=== PATIENT | female | born 1985 | race Caucasian/White ===

== ENCOUNTER 2016-10-20 20:45 | Emergency (ER) | payer OTHER ==
--- NOTE | 2016-10-20 21:15 | PDOC ---
Rapid Medical Evaluation Chief Complaint: Labor Assessment Time Seen by Provider: 10/20/16 21:14 Medical Evaluation: Allergies Allergy/AdvReac Type Severity Reaction Status Date / Time No Known Allergies Allergy Verified 10/20/16 21:07 Vital Signs Temp Pulse Resp BP Pulse Ox 98.0 F 78 20 111/57 100 10/20/16 21:08 10/20/16 21:08 10/20/16 21:08 10/20/16 21:08 10/20/16 21:08 10/20/16 21:15 I have performed a brief in-person evaluation of this patient. The patient presents with a chief complaint of: abd pain, no movement x 3 days . presently 25 weeks Pertinent physical exam findings: none, vss I have ordered the following: go to maternity for monitoring
[2016-10-20 21:29] VITALS: BMI 27.4
[2016-10-20 23:17] VITALS: TEMP 98.1
[2016-10-21 01:35] VITALS: BP 104/61; PULSE 71
== END 2016-10-20 23:38 | disposition home or self-care (01) ==
LOC: JER 20:45
DX: Z03.79 Encounter for other suspected maternal and fetal conditions ruled out (principal)
CPT/HCPCS: 99281-25

== ENCOUNTER 2017-03-04 12:00 | Inpatient (IN) | payer OTHER ==
[~2017-03-04 12:00] MED LIST: CITRIC ACID/SODIUM CITRATE 30 ML UNIT-DOSE CUP PO ONE; ELECTROLYTE-148 SOLN 500 ML IV ONE
[2017-03-04 13:12] LABS: BASOPHIL 0.6 % (0-2.0); EOSINOPHIL 0.4 % (0-4.5); MCH 23.3 pg (25.7-33.7); MCHC 31.8 g/dl (32.0-36.0); MEAN CELL VOLUME 73.4 fl (80-96); MEAN PLT VOLUME 8.2 fl (7.5-11.1); NEUTROPHILS 74.3 % (42.8-82.8); PLATELET COUNT 229 K/MM3 (134-434); RDW 19.9 % (11.6-15.6); WHITE BLOOD COUNT 7.5 K/mm3 (4.0-10.0)
[2017-03-04 13:26] LABS: INR 0.93 (0.82-1.09); PROTHROMBIN TIME (PATIENT) 10.2 SEC (9.98-11.88)
[2017-03-04 13:28] LABS: ACTIVATED PTT 27.3 SECONDS (26.9-34.4)
[2017-03-04 13:35] LABS: ANION GAP 9 (8-16); CALCIUM 8.4 mg/dL (8.5-10.1); CO2 22 mmol/L (21-32); CREATININE 0.5 mg/dL (0.55-1.02); GLUCOSE,RANDOM 69 mg/dL (74-106)
[2017-03-04] MEDS: ELECTROLYTE-148 SOLN 1,000 ML IV SCH (14:00)
[2017-03-04 14:09] VITALS: BMI 28.9
--- NOTE | 2017-03-04 15:57 | HP ---
Past Medical History - Primary Care Physician PCP:: Adilson Herrera - Admission Chief Complaint: 40.5 weeks, previous c/s. LGA. for repeat c/s. voluntary BTL History of Present Illness: 32 yo f g 3 p1011 edc 02/27/17 ,post date, previous c/s sono EFW 9.5 LB admitted for repeat c/s rba discussed wants BTKL , risks of ectopic, failure risks discussed History Source: Patient Limitations to Obtaining History: No Limitations - Past Medical History ...: 3 ...Para: 1 ...Term: 1 ...: 0 ...Spon : 0 ...Induced : 1 ...Multiple Gestation: 0 ...LMP: 05/23/16 ... Weeks Gestation by Dates: 40.5 ...EDC by Dates: 02/27/17 ...EDC by Sono: 03/01/17 - Past Surgical History Past Surgical History: Yes: Hx Myomectomy: No Hx Transabdominal Cerclage: No - Smoking History Smoking history: Never smoked - Alcohol/Substance Use Hx Alcohol Use: No - Social History History of Recent Travel: No Home Medications - Allergies Allergies/Adverse Reactions: Allergies Allergy/AdvReac Type Severity Reaction Status Date / Time No Known Allergies Allergy Verified 03/04/17 15:50 - Home Medications Home Medications: Ambulatory Orders Pnv95/Ferrous Fumarate/FA [ Formula] 1 each PO DAILY 03/01/17 Valtrex 500 mg PO DAILY 03/04/17 Review of Systems - Review of Systems Constitutional: reports: No Symptoms Eyes: reports: No Symptoms HENT: reports: No Symptoms Neck: reports: No Symptoms Cardiovascular: reports: No Symptoms Respiratory: reports: No Symptoms Gastrointestinal: reports: No Symptoms Genitourinary: reports: No Symptoms Musculoskeletal: reports: No Symptoms Integumentary: reports: No Symptoms Neurological: reports: No Symptoms Endocrine: reports: No Symptoms Hematology/Lymphatic: reports: No Symptoms Psychiatric: reports: No Symptoms Physical Exam - Maternity Vital Signs: Vital Signs Temperature 98.0 F 03/04/17 15:36 Pulse Rate 74 03/04/17 15:36 Respiratory Rate 18 03/04/17 15:36 Blood Pressure 128/80 03/04/17 15:36 O2 Sat by Pulse Oximetry (%) Constitutional: Yes: Well Nourished, No Distress, Calm Eyes: Yes: WNL, Conjunctiva Clear, EOM Intact HENT: Yes: WNL, Atraumatic, Normocephalic Neck: Yes: WNL, Supple, Trachea Midline Cardiovascular: Yes: WNL, Regular Rate and Rhythm Breast(s): Yes: WNL - Abdominal Exam/OB Fundal Height: 40 Number of Fetuses: Single Presentation: Vertex Contractions: Yes Regularity: Irregular Intensity: Unaware Heart Rate Location: [facility] Category: I Accelerations: Uniform Decelerations: None - Vaginal Exam/OB Vaginal Bleediing: No Dilatation (cm): closed Effacement (%): 0 Amniotic Membrane Status: Intact Presentation: Vertex/Position Station: -3 - Physical Exam Musculoskeletal: Yes: WNL Extremities: Yes: WNL Edema: Yes Edema: LLE: Trace, RLE: Trace Deep Tendon Reflex Grade: Normal +2 - Labs Lab Results: CBC, BMP 03/04/17 12:35 03/04/17 12:35 Hemorrhage Risk Assessment - Risk Factors Medium Risk Factors: Yes: None High Risk Factors: Yes: Active bleeding on admission Risk Score: 1 Risk Level: Medium Risk Problem List - Problems (1) Postmaturity , 40-42 weeks gestation Code(s): O48.0 - POST-TERM (2) Previous section Code(s): Z98.891 - HISTORY OF UTERINE SCAR FROM PREVIOUS SURGERY (3) Sterilization Code(s): Z30.2 - ENCOUNTER FOR STERILIZATION (4) Large for gestational age fetus Code(s): LOP8888 - Assessment/Plan repeat c/s ,btl, rba discussed
[2017-03-04] MEDS ORDERED: BENZOCAINE 20% 57 GM BOTTLE TP PRN (16:56)
[2017-03-04] MEDS ORDERED: METHYLERGONOVINE MALEATE 0.2 MG/1 ML AMP IM PRN (16:56)
[2017-03-04] MEDS ORDERED: BENZOCAINE 28 GM HEMORRHOIDAL OINTMENT PR PRN (16:56)
[2017-03-04] MEDS ORDERED: oxyCODONE HCL 5 MG TABLET PO PRN (16:56)
[2017-03-04] MEDS ORDERED: diphenhydrAMINE HCL 25 MG CAPSULE (FP) PO PRN (16:56)
[2017-03-04] MEDS ORDERED: IBUPROFEN 600 MG TABLET (FP) PO PRN (16:56)
[2017-03-04] MEDS ORDERED: IBUPROFEN 800 MG/8 ML IJ IVPB PRN (16:56)
[2017-03-04] MEDS ORDERED: WITCH HAZEL 50% (TUCKS) 40 PAD/JAR PAD TP PRN (16:56)
[2017-03-04] MEDS ORDERED: OXYTOCIN 20 UNITS in 0.9% NS 1,000 ML IV SCH (17:00)
[2017-03-04] MEDS: DEXTROSE 5%-LACTATED RINGERS 1,000 ML IV SCH (20:29)
[2017-03-05] MEDS: CEFAZOLIN (PRE-DOCKED) 50 ML IVPB SCH ×2 (00:46→08:30)
[2017-03-05] MEDS: DEXTROSE 5%-LACTATED RINGERS 1,000 ML IV SCH ×2 (03:13→17:02)
--- NOTE | 2017-03-05 07:51 | PN ---
Progress Note (short form) - Note Progress Note: pod 1 doing well, no excess vaginal bleeding CBC, BMP 03/04/17 12:35 Last Vital Signs Temp Pulse Resp BP Pulse Ox 99.5 F 84 18 114/72 99 03/05/17 05:52 03/05/17 05:52 03/05/17 05:53 03/05/17 05:52 03/04/17 18:05 abdomen soft, no distension, no cva incision dry, cleanno calf tenderness plan ambulate, advance diet, cbc Problem List - Problems (1) Postmaturity , 40-42 weeks gestation Code(s): O48.0 - POST-TERM (2) Previous section Code(s): Z98.891 - HISTORY OF UTERINE SCAR FROM PREVIOUS SURGERY (3) Sterilization Code(s): Z30.2 - ENCOUNTER FOR STERILIZATION (4) Large for gestational age fetus Code(s): FOX9334 -
[2017-03-05 08:03] LABS: BASOPHIL 0.4 % (0-2.0); EOSINOPHIL 0.2 % (0-4.5); MCH 23.7 pg (25.7-33.7); MCHC 32.4 g/dl (32.0-36.0); NEUTROPHILS 76.7 % (42.8-82.8); PLATELET COUNT 198 K/MM3 (134-434); RDW 19.9 % (11.6-15.6); WHITE BLOOD COUNT 9.8 K/mm3 (4.0-10.0)
[2017-03-05] MEDS: IBUPROFEN 600 MG TABLET (FP) PO PRN ×2 (08:22→14:38)
[2017-03-05] MEDS: SIMETHICONE 80 MG TAB.CHEW (FP) PO PRN ×2 (08:22→14:40)
[2017-03-05] MEDS: ACETAMINOPHEN 325 MG TABLET (FP) PO PRN ×2 (08:23→14:39)
--- NOTE | 2017-03-05 09:26 | PN ---
Progress Note (short form) - Note Progress Note: ANESTHESIOLOGY POST-OP CHECK 32F s/p under spinal anesthesia, POD #1. No acute complaints. Pain 4/ 10 and tolerable. Tolerating PO, not yet OOB, martinez in place. denies N/V, headache. Vital Signs Temperature 99.5 F 03/05/17 05:52 Pulse Rate 84 03/05/17 05:52 Respiratory Rate 18 03/05/17 05:53 Blood Pressure 114/72 03/05/17 05:52 O2 Sat by Pulse Oximetry (%) 99 03/04/17 18:05 Active Medications Acetaminophen (Tylenol -) 650 mg PO Q4H PRN PRN Reason: FEVER OR PAIN Last Admin: 03/05/17 08:23 Dose: 650 mg Benzocaine (Americaine Ointment -) 1 applic [place] PRN PRN PRN Reason: PAIN Benzocaine (Americaine 20% [place] -) 1 spray TP PRN PRN PRN Reason: PAIN Bisacodyl (Dulcolax Suppository -) 10 mg RC PRN PRN PRN Reason: CONSTIPATION Diphenhydramine HCl (Benadryl Injection -) 25 mg IVPUSH Q4H PRN PRN Reason: Pruritis Diphenhydramine HCl (Benadryl -) 25 mg PO Q8H PRN PRN Reason: FOR ITCHING Diphtheria/Tetanus/Acell Pertussis (Boostrix -) 0.5 ml IM .ONCE ONE Stop: 03/05/17 14:01 Parenteral Electrolytes (Plasma-Lyte 148 -) 1,000 mls @ 125 mls/hr IV ASDIR [facility] Last Admin: 03/04/17 14:00 Dose: 125 mls/hr Dextrose/Lactated Ringer's (D5-Lr -) 1,000 mls @ 125 mls/hr IV ASDIR [facility] Last Admin: 03/05/17 03:13 Dose: 125 mls/hr Ibuprofen (Motrin -) 600 mg PO Q4H PRN PRN Reason: PAIN Last Admin: 03/05/17 08:22 Dose: 600 mg Methylergonovine Maleate (Methergine Injection -) 0.2 mg IM Q4H PRN PRN Reason: EXCESSIVE BLEEDING Oxycodone HCl (Roxicodone -) 5 mg PO Q4H PRN PRN Reason: PAIN LEVEL 1-5 Oxycodone HCl (Roxicodone -) 10 mg PO Q4H PRN PRN Reason: PAIN LEVEL 6-10 Senna/Docusate Sodium (Pericolace -) 2 tablet PO HS PRN PRN Reason: CONSTIPATION Simethicone (Mylicon -) 80 mg PO Q4H PRN PRN Reason: GAS Last Admin: 03/05/17 08:22 Dose: 80 mg Witch Dariela/Glycerin (Tucks Pads -) 1 pad TP PRN PRN PRN Reason: PAIN Gen: awake, alert, NAD No apparent anesthesia complications. Pain controlled. Continue management as per primary team.
[2017-03-05] MEDS ORDERED: DIPHTH,PERTUSS(ACELL),TET 0.5 ML DISP.SYRIN IM ONE ×2 (14:00→15:45)
[2017-03-05] MEDS ORDERED: BISACODYL 10 MG SUPP.RECT RC PRN (16:56)
[2017-03-05] MEDS: ELECTROLYTE-148 SOLN 1,000 ML IV SCH (17:02)
[2017-03-06] MEDS: SIMETHICONE 80 MG TAB.CHEW (FP) PO PRN ×4 (00:07→23:22)
[2017-03-06] MEDS: oxyCODONE HCL 5 MG TABLET PO PRN ×5 (00:08→23:24)
[2017-03-06] MEDS: ACETAMINOPHEN 325 MG TABLET (FP) PO PRN ×4 (00:08→18:42)
--- NOTE | 2017-03-06 07:04 | PN ---
Post Progress Note - Subjective Subjective: 32 yo Para 2 status post repeat , seen and evaluated. Doing well; she c/o mild incision pain. Post Day: 2 Type of Delivery: Repeat C/S Vital Signs: Vital Signs Temperature 98.2 F 03/06/17 05:26 Pulse Rate 88 03/06/17 05:26 Respiratory Rate 20 03/06/17 05:26 Blood Pressure 130/70 03/06/17 05:26 O2 Sat by Pulse Oximetry (%) 99 03/04/17 18:05 Breast Exam: Yes: Soft Uterus: Yes: Fundus Firm Incision: Yes: Dressing dry and intact Abdomen/GI: Yes: Abdomen soft Lochia: Yes: Rubra Lochia, amount: Small Perineum: Yes: Intact Activity: Ambulating - Labs Labs: CBC WBC 9.8 K/mm3 (4.0-10.0) D 03/05/17 06:00 RBC 3.11 M/mm3 (3.60-5.2) L D 03/05/17 06:00 Hgb 7.4 GM/dL (10.7-15.3) L D 03/05/17 06:00 Hct 22.7 % (32.4-45.2) L D 03/05/17 06:00 MCV 73.0 fl (80-96) L 03/05/17 06:00 MCH 23.7 pg (25.7-33.7) L 03/05/17 06:00 MCHC 32.4 g/dl (32.0-36.0) 03/05/17 06:00 RDW 19.9 % (11.6-15.6) H 03/05/17 06:00 Plt Count 198 K/MM3 (134-434) 03/05/17 06:00 MPV 8.0 fl (7.5-11.1) 03/05/17 06:00 Neutrophils % 76.7 % (42.8-82.8) 03/05/17 06:00 Lymphocytes % 16.1 % (8-40) 03/05/17 06:00 Monocytes % 6.6 % (3.8-10.2) 03/05/17 06:00 Eosinophils % 0.2 % (0-4.5) 03/05/17 06:00 Basophils % 0.4 % (0-2.0) 03/05/17 06:00 Problem List - Problems (1) Status post repeat low transverse section Code(s): Z98.891 - HISTORY OF UTERINE SCAR FROM PREVIOUS SURGERY Assessment/Plan Status post repeat Stable Continue routine Post op care
--- NOTE | 2017-03-06 08:43 | OP ---
DATE OF OPERATION: 03/04/2017 PREOPERATIVE DIAGNOSES: , 40.5 weeks gestation; previous section; large for gestational age; and voluntary sterilization. POSTOPERATIVE DIAGNOSES: , 40.5 weeks gestation; previous section; large for gestational age; and voluntary sterilization. PROCEDURE: Repeat low-segment transverse section and bilateral tubal ligation. SURGEON: Adilson Herrera MD OB GYN PHYSICIAN ASSISTANT: SUSAN Santamaria ANESTHESIA: Spinal. ANESTHESIOLOGIST: ESTIMATED BLOOD LOSS: 500 mL DESCRIPTION OF OPERATION: Patient was taken to the operating room. Under adequate spinal anesthesia, abdomen and perineum were prepped and draped. Pfannenstiel abdominal skin incision was made over the previous incision. Abdominal wall was cut layer by layer until peritoneum was exposed and incised. Upon entering the abdominal cavity, lower uterine segment was identified and uterovesical fold of peritoneum established. Bladder was pushed down. Then, the low transverse incision was made. Incision extended laterally. Amniotic sac was entered. Light-meconium amniotic fluid noted. Head delivered. Nasopharynx was suctioned. Live baby delivered without any difficulty. Placenta was delivered manually. Uterine cavity was cleaned out of remaining tissue. Uterine incision was closed in 2 layers, first layer with 0 Biosyn continuous suture, the second layer with 0 Biosyn imbricating the first layer. Bladder flap was closed with 0 Biosyn continuous suture. Both tubes and ovaries were checked, were normal. No active bleeding was seen. All the lap packs, sponge, and instrument counts were correct. Then, right tube was grasped with Mary Ann clamp. Right tube was doubly tied with 2-0 plain, and a portion of tube was removed and endosalpinx was cauterized. Same procedure repeated for opposite tube. Visualization of both tubes showed adequate cauterization. Then, peritoneum was closed with 0 Biosyn continuous suture. Muscles were brought together with interrupted sutures of 0 Biosyn. Fascia was closed with 0 Biosyn continuous suture, subcutaneous fat with interrupted suture of 0 Biosyn, and the skin was closed with sarah. The patient tolerated the procedure well, left the OR in good condition. Blaine [id number]
[2017-03-06] MEDS: IBUPROFEN 600 MG TABLET (FP) PO PRN ×3 (09:18→23:23)
[2017-03-06] MEDS ORDERED: SENNOSIDES/DOCUSATE COMBO (SENNA PLUS) TABLET (UD) PO PRN (22:00)
[2017-03-07] MEDS: ACETAMINOPHEN 325 MG TABLET (FP) PO PRN ×2 (04:22→08:32)
[2017-03-07] MEDS: SIMETHICONE 80 MG TAB.CHEW (FP) PO PRN ×2 (04:22→08:31)
[2017-03-07] MEDS: oxyCODONE HCL 5 MG TABLET PO PRN (08:31)
[2017-03-07] MEDS: IBUPROFEN 600 MG TABLET (FP) PO PRN (08:32)
--- NOTE | 2017-03-07 08:35 | DS ---
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.Motor Strength: WNL Psychiatric: Yes: Alert, Oriented Labs: CBC, BMP 03/05/17 06:00 03/04/17 12:35 Delivery - Delivery Type of Anesthesia: Spinal EBL (cc): 500 Delivery, Single - Stages of Labor Date of Delivery: 03/04/17 Time of Delivery: 16:24 Time Placenta Delivered: 16:25 - 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 Present: Yes Name: Kaylee Hilton Infant Gender: Male Weight: 9 lb 10 oz Position: Right, OT Total Hours ROM (Hrs/Mins): 2 minutes - 1 Minute Total Score: 9 5 Minutes Total Score: 9 - Feeding Plan Initial Plan: Elected not to breastfeed exclusively throughout hospitalization Discharge Summary Reason For Visit: C SECTION Current Active Problems Large for gestational age fetus (Acute) Postmaturity , 40-42 weeks gestation (Acute) Previous section (Acute) Status post repeat low transverse section (Acute) Sterilization (Acute) Procedures: Principal: Repeat Low trasverse Hospital Course: Routine Post op care, no blood transfusion required. Condition: Good - Instructions Diet, Activity, Other Instructions: regular diet, follow up [facility] care 2 weeks return to clinic in 1 week for sarah removal. call [facility] for appointment. [phone] Referrals: Adilson Herrera MD [Staff Physician] - Disposition: HOME - Home Medications Comprehensive Discharge Medication List: Ambulatory Orders Pnv95/Ferrous Fumarate/FA [ Formula] 1 each PO DAILY 03/01/17 Ibuprofen [Motrin -] 600 mg PO QID #28 tablet 03/04/17 Valtrex 500 mg PO DAILY 03/04/17
[2017-03-07 08:38] LABS: BASOPHIL 0.4 % (0-2.0); EOSINOPHIL 2.3 % (0-4.5); MCH 23.3 pg (25.7-33.7); MCHC 31.7 g/dl (32.0-36.0); MEAN CELL VOLUME 73.6 fl (80-96); MEAN PLT VOLUME 7.4 fl (7.5-11.1); NEUTROPHILS 69.8 % (42.8-82.8); PLATELET COUNT 262 K/MM3 (134-434); RDW 20.4 % (11.6-15.6)
[2017-03-07 09:44] VITALS: BP 130/75; PULSE 72; TEMP 98
== END 2017-03-07 14:00 | disposition home or self-care (01) | DRG 540 ==
LOC: JLDR 12:00 → J3W 19:40
PROVIDERS: ADMIT Obstetrics & Gynecology; ATTEND Obstetrics & Gynecology
PROC: 10D00Z1 Extraction of Products of Conception, Low, Open Approach (ICD-10-PCS; principal; 2017-03-04)
PROC: 0U570ZZ Destruction of Bilateral Fallopian Tubes, Open Approach (ICD-10-PCS; 2017-03-04)
DX: O34.211 Maternal care for low transverse scar from previous cesarean delivery (principal); O77.0 Labor and delivery complicated by meconium in amniotic fluid; Z3A.40 40 weeks gestation of pregnancy; Z37.0 Single live birth; Z30.2 Encounter for sterilization
CPT/HCPCS: 36415; 80048; 85025; 85610; 85730; 86593; 86850; 86900; 86901; 88302-TC; 88307-TC; 90715

== ENCOUNTER 2019-10-19 18:58 | Emergency (ER) | payer OTHER ==
[2019-10-19 19:07] VITALS: BP 108/57; PULSE 68; TEMP 97.8; BMI 25.6
--- NOTE | 2019-10-19 19:07 | PDOC ---
Rapid Medical Evaluation Time Seen by Provider: 10/19/19 19:05 Medical Evaluation: Allergies Allergy/AdvReac Type Severity Reaction Status Date / Time No Known Allergies Allergy Verified 03/04/17 15:50 10/19/19 19:06 I have performed a brief in-person evaluation of this patient. The patient presents with a chief complaint of: eyelid swelling x 2days Pertinent physical exam findings: swelling/erythema to L upper eyelid I have ordered the following: nothing The patient will proceed to the ED for further evaluation. Discharge Disposition - Diagnosis Swollen eyelid - Referrals - Patient Instructions - Post Discharge Activity
--- NOTE | 2019-10-19 20:16 | PDOC ---
History of Present Illness - General Chief Complaint: Eye Problem Stated Complaint: RT EYE SWELLING Time Seen by Provider: 10/19/19 19:05 History Source: Patient Exam Limitations: Clinical Condition - History of Present Illness Initial Comments: 10/19/19 20:11 Patient with no significant past medical history present with complaint of stye to left upper eyelid and swelling to left upper eyelid for 3 days. Denies blurry vision or change in vision. Patient reported working in [employer] and believe she might have touched her eye while working on equipment over there. Denies discharge from eye or any other symptom. Is this a multiple visit Asthma Patient?: No Timing/Duration: other (3 days) Past History - Past Medical History Allergies/Adverse Reactions: Allergies Allergy/AdvReac Type Severity Reaction Status Date / Time No Known Allergies Allergy Verified 03/04/17 15:50 Home Medications: Ambulatory Orders Erythromycin 0.5% Eye Ointment [Erythromycin 0.5% Eye Ointment -] 1 applic OS TID 5 Days #1 tube 10/19/19 Asthma: No Cancer: No Cardiac Disorders: No COPD: No Diabetes: No HTN: No Seizures: No Thyroid Disease: No - Immunization History Immunization Up to Date: Yes - Psycho Social/Smoking Cessation Hx Smoking History: Never smoked Hx Alcohol Use: No Drug/Substance Use Hx: No Hx Substance Use Treatment: No Review of Systems - Review of Systems Able to Perform ROS?: Yes Is the patient limited Tunisian proficient: No Constitutional: No: Chills, Fever, Malaise HEENTM: Yes: Symptoms Reported, See HPI, Eye Pain (left upper eyelid). No: Blurred Vision, Tearing, Recent change in vision, Double Vision, Cataracts, Ear Pain, Ocular Prothesis, Ear Discharge, Nose Pain, Nose Congestion, Tinnitus, Nose Bleeding, Hearing Loss, Throat Pain, Throat Swelling, Mouth Pain, Dental Problems, Difficulty Swallowing, Mouth Swelling, Other Respiratory: No: Symptoms reported, See HPI, Cough, Orthopnea, Shortness of Breath, SOB with Exertion, SOB at Rest, Stridor, Wheezing, Productive cough, Hemoptysis, Other Cardiac (ROS): No: Symptoms Reported, See HPI, Chest Pain, Edema, Irregular Heart Rate, Lightheadedness, Palpitations, Syncope, Chest Tightness, Other ABD/GI: No: Symptoms Reported, Nausea, Vomiting All Other Systems: Reviewed and Negative *Physical Exam - Vital Signs Last Vital Signs Temp Pulse Resp BP Pulse Ox 97.8 F 68 18 108/57 L 98 10/19/19 19:05 10/19/19 19:05 10/19/19 19:05 10/19/19 19:05 10/19/19 19:05 - Physical Exam 10/19/19 20:12 GENERAL: Well developed, well nourished. Awake and alert. No acute distress. HEENT: Normocephalic, atraumatic. PERRLA, EOMI. No conjunctival pallor. Sclera are non-icteric. Moist mucous membranes. Oropharynx is clear. NECK: Supple. Full ROM. PULMONARY: No evidence of respiratory distress. MUSCULOSKELETAL Normal range of motion at all joints. SKIN: Warm and dry. Normal capillary refill. Small 1 mm external hordeolum to left upper eyelid with mild erythema over eyelashes of left upper eyelid. No open wounds or discharge. NEUROLOGICAL: Alert, awake, appropriate. Gait is normal without ataxia. PSYCHIATRIC: Cooperative. Good eye contact. Appropriate mood General Appearance: Yes: Nourished, Appropriately Dressed. No: Apparent Distress Medical Decision Making - Medical Decision Making 10/19/19 20:11 Patient with no significant past medical history present with complaint of stye to left upper eyelid and swelling to left upper eyelid for 3 days. Denies blurry vision or change in vision. Patient reported working in [employer] and believe she might have touched her eye while working on equipment over there. Denies discharge from eye or any other symptom. Exam significant for mild erythema to left upper eyelid with small external hordeolum to left upper eyelid. Conjunctive are clear. Pupil equal reactive to light bilateral. Extraocular muscle intact bilateral. Patient symptoms likely echo delirium and stable for patient management on topical erythromycin ointment was advised to do warm compresses with ophthalmology follow-up Discharge - Discharge Information Problems reviewed: Yes Clinical Impression/Diagnosis: Hordeolum externum left upper eyelid Swollen eyelid Qualifiers: Laterality: left Qualified Code(s): H02.846 - Edema of left eye, unspecified eyelid Condition: Stable Disposition: HOME - Admission No - Additional Discharge Information Prescriptions: Erythromycin 0.5% Eye Ointment [Erythromycin 0.5% Eye Ointment -] 1 applic OS TID 5 Days #1 tube - Follow up/Referral Referrals: Gabo Montez MD [Staff Physician] - - Patient Discharge Instructions Patient Printed Discharge Instructions: DI for Hordeolum Additional Instructions: Apply prescribed antibiotics ointment to left upper eyelid 3 times a day for 5 days as prescribed. Apply warm compress to eyelid 2-3 times a day for 5 minutes as needed for swelling. Follow-up referred ophthalmology if symptoms persist for more than 3 days Print Language: OMANI - Post Discharge Activity Work/Back to School Note: Back to Work
== END 2019-10-19 20:20 | disposition home or self-care (01) ==
LOC: JERFT 18:58
DX: H00.014 Hordeolum externum left upper eyelid (principal)
CPT/HCPCS: 99281-25

== ENCOUNTER 2021-08-23 23:01 | Emergency (ER) | payer OTHER ==
[2021-08-23 23:36] VITALS: BP 153/85; PULSE 62; TEMP 97.8; BMI 27.8
== END 2021-08-24 01:04 | disposition home or self-care (01) ==
LOC: JER 23:01
DX: L42 Pityriasis rosea (principal); L93.0 Discoid lupus erythematosus; L25.9 Unspecified contact dermatitis, unspecified cause
CPT/HCPCS: 99281-25